=== PATIENT | female | born 1960 | race African-American/Black ===

== ENCOUNTER 2017-05-05 10:33 | Outpatient (CLI) | payer OTHER | END 2017-05-05 10:34 | disposition home or self-care (01) | LOC: CTENTCT 10:33 | PROVIDERS: ATTEND Otolaryngology Plastic Surgery within the Head & Neck | DX: J32.9 Chronic sinusitis, unspecified (principal) | CPT/HCPCS: 70486 ==

== ENCOUNTER 2017-06-22 08:25 | Outpatient (CLI) | payer OTHER ==
[2017-06-22] MEDS ORDERED: EPINEPHrine 1 MG/ML AMP ONE (09:00)
[2017-06-22] MEDS ORDERED: Iopamidol 300 61% 30 ML VIAL ONE (09:00)
[2017-06-22] MEDS ORDERED: Lidocaine 1% PF 10 ML AMP ONE (09:00)
[2017-06-22] MEDS ORDERED: Sodium Chloride 0.9% 50 ML BAG ONE (09:00)
--- NOTE | 2017-06-22 12:56 | CT ---
LEFT SHOULDER CT SCAN POST ARTHROGRAM CONTRAST: HISTORY: A 57-year-old female with a history of left shoulder pain. TECHNIQUE: CT exam was performed following a left shoulder arthrogram. FINDINGS: There is total left shoulder replacement. There is no evidence for a rotator cuff tear. Rotator cuf f muscles appear to be within normal limits in attenuation and volume. IMPRESSION: Postoperative total shoulder replacement on the left. No evidence for rotator cuff. Rotator cuff mu scles appear to be normal in attenuation and volume. POS: [facility]
[2017-06-22 14:22] LABS: BF Color Yellow; BF RBC Count - Manual 2325 /cumm; Body Fluid Source SYNOVIAL FLUID; Clarity Hazy (Clear); RBC Background Count 0.002; Tube # EDTA; WBC/NonHematic-Auto 414 /cumm
--- NOTE | 2017-06-22 14:43 | RAD ---
PROCEDURES: 1. Fluoroscopic guided left glenohumeral joint aspiration. 2. Fluoroscopic-guided left shoulder arthrogram. DATE: 06/22/17. HISTORY: The patient has left shoulder prosthesis but has continued pain in the left shoulder. Joint aspirati on as well as arthrogram are requested followed by CT exam left shoulder. TECHNIQUE: The procedure including the risks and complications was explained to the patient and informed consent was obtained. The patient was placed on the fluoroscopy table in the supine position. The left charli ulder was placed in external rotation. An area overlying the upper 1/3 of the margin of the humeral prosthesis was marked, and the area was then meticulously prepped and draped in the usual sterile fas hion. The skin and subcutaneous tissues were infiltrated with buffered 1% Lidocaine for local anesthesia. Utilizing fluoroscopic guidance, a 22-gauge needle was advanced to the level of the prosthesis and th en slightly directed medially into the left glenohumeral joint. The inner stylette was removed, and approximately 4 mL of clear straw-colored fluid was aspirated. The fluid was sent for laboratory zachariah ues. A left shoulder arthrogram was then preformed with injection of 12 mL of a mixture originally consist ing of Isovue 300, normal saline, a Lidocaine, and a small amount of epinephrine. The needle was rem sae. Hemostasis was achieved with direct pressure, and a dry sterile dressing was placed. The patient was transported to CT scan for additional imaging of the left shoulder post arthrogram. The patient tolerated the procedure well and without immediate complication. FINDINGS: Three views of the left shoulder were obtained prior to left shoulder arthrogram which demonstrates a left humeral prosthesis. No hardware complication is identified, and there is no dislocation. A left glenohumeral joint aspiration was performed, and approximately 4 mL of clear straw-colored flu id was aspirated. Specimens were sent for labs. A left shoulder arthrogram was successfully performed under fluoroscopic guidance. IMPRESSION: 1. Left humeral prosthesis. 2. Technically successful left glenohumeral joint aspiration. 3. Technically successful left shoulder arthrogram. POS: [facility]
[2017-06-22 14:45] LABS: BF Segmented Neutrophils 25 %; Cell Count Non Hematic 53 %; Lymphocytes 22 %
== END 2017-06-22 08:26 | disposition home or self-care (01) ==
LOC: RAD 08:25
PROVIDERS: ATTEND Orthopaedic Surgery
DX: M25.512 Pain in left shoulder (principal); Z96.612 Presence of left artificial shoulder joint; Z98.890 Other specified postprocedural states
CPT/HCPCS: 23350; 85060; 87070; 87205; 89051; J0171; J7050

== ENCOUNTER 2017-06-27 08:55 | Outpatient (CLI) | payer OTHER ==
--- NOTE | 2017-06-27 09:41 | RAD ---
CHEST 2 VIEWS: HISTORY: Dyspnea. COMPARISON: None. FINDINGS: Lungs are clear. No pneumothorax or effusion. Cardiac silhouette and mediastinal contour is within normal limits. IMPRESSION: No acute intrathoracic abnormality. POS: [facility]
== END 2017-06-27 08:56 | disposition home or self-care (01) ==
LOC: RAD 08:55
PROVIDERS: ATTEND Internal Medicine Critical Care Medicine
DX: R06.00 Dyspnea, unspecified (principal)
CPT/HCPCS: 71046

== ENCOUNTER 2018-02-21 06:15 | Day surgery (SDC) | payer OTHER ==
[2018-02-20 15:35] VITALS: BMI 33.4
--- NOTE | 2018-02-21 07:23 | HP ---
HISTORY OF PRESENT ILLNESS: This is a 57-year-old female, comes for an EGD because of the history of longstanding acid reflux. The patient has had acid reflux for more than 10 years ago. The patient is taking omeprazole for last 10 years. She has been having increasing reflux over the last several months. She also complains of regurgitation after eating. The patient comes for EGD because of long standing acid reflux along with negative endoscopy exam in the past. She also has dysphagia off and on and the dysphagia is mostly to solid foods. ALLERGIES Tylenol No.4. SOCIAL HISTORY: The patient is a smoker. She drinks alcohol occasionally. MEDICAL ILLNESSES: 1. Hypertension. 2. Hyperlipidemia. 3. Obesity. 4. Chronic acid reflux. 5. Back surgery. 6. Hysterectomy. 7. Left shoulder surgery x2. PHYSICAL EXAMINATION: VITAL SIGNS: Pulse is 70, blood pressure 130/80. HEENT: Conjunctivae clear. NECK: Supple. No adenitis or thyromegaly noted. CARDIOVASCULAR SYSTEM: First and second heart sounds heard. LUNGS: Clear to auscultation. ABDOMEN: Soft. No organomegaly. No tenderness. No masses. EXTREMITIES: No edema. ADMITTING DIAGNOSIS: Chronic acid reflux or dysphagia. PLAN: EGD and possible dilation. Job ID: [id number]
[2018-02-21] MEDS ORDERED: PROPOFOL 200 MG/20 ML VIAL ONE (21:15)
[2018-02-21] MEDS ORDERED: Lidocaine 1% PF 5 ML VIAL ONE (21:15)
--- NOTE | 2018-02-22 12:06 | OP ---
DATE OF PROCEDURE: 02/21/2018 PROCEDURES PERFORMED: 1. Esophagogastroduodenoscopy with biopsy. 2. Esophageal dilation with a 52-[place] Din[employer] dilator. PREOPERATIVE DIAGNOSES: The patient with longstanding acid reflux with worsening symptoms recently. She also complains of dysphagia to solids food. The patient . POSTOPERATIVE DIAGNOSES: 1. Normal esophageal mucosa, no esophagitis seen. 2. No esophageal stricture seen. 3. Mild focal gastritis to gastric body. Otherwise, normal exam. DESCRIPTION OF PROCEDURE: The patient was placed on her left lateral position and was given sedation by the Anesthesia Department. A [employer]ax video gastroscope under direct vision passed down the oropharynx past the GE junction into the stomach and subsequently into the descending duodenum. Although, the patient complains of worsening acid reflux, on endoscopy, the mucosa appears completely normal. No esophagitis seen. At the GE junction, no pathology seen. Retroflexion failed to show any pathology in the fundus or cardia. The gastric body shows focal edema, erythema. Biopsy obtained from the gastric antrum and gastric body. At the incisura angularis, no pathology seen. At the duodenal bulb, descending duodenum, no pathology seen. The stomach was decompressed and the scope was removed. Because of dysphagia, a 52-Portuguese Dinero dilator advanced the stomach . DISCHARGE PLANNING: Ms. Pulido is a very pleasant 57-year-old female referred to me for evaluation of acid reflux with dysphagia. Although, the patient complains of worsening acid reflux, on endoscopy, no esophagitis seen. Also, there is no esophagus stricture seen. The patient underwent empiric dilation with a 52-[place] Dinero dilator, which was passed out without any resistance. DISCHARGE RECOMMENDATIONS: 1. Weight loss. 2. Dietary and lifestyle modification for control of reflux. 3. Continue omeprazole. 4. Come back to clinic in 2 weeks. Job ID: [id number]
== END 2018-02-21 10:12 | disposition home or self-care (01) ==
LOC: SDC 06:15
PROVIDERS: ATTEND Internal Medicine Gastroenterology
PROC: 0DB68ZX Excision of Stomach, Via Natural or Artificial Opening Endoscopic, Diagnostic (ICD-10-PCS; principal; 2018-02-21)
PROC: 0D757ZZ Dilation of Esophagus, Via Natural or Artificial Opening (ICD-10-PCS; principal; 2018-02-21)
DX: K29.70 Gastritis, unspecified, without bleeding (principal); K21.9 Gastro-esophageal reflux disease without esophagitis; I10 Essential (primary) hypertension; E78.5 Hyperlipidemia, unspecified; F17.200 Nicotine dependence, unspecified, uncomplicated; E66.9 Obesity, unspecified; Z68.33 Body mass index [BMI] 33.0-33.9, adult; Z79.899 Other long term (current) drug therapy; Z88.5 Allergy status to narcotic agent; Z88.8 Allergy status to other drugs, medicaments and biological substances
CPT/HCPCS: 88305; 88312; J2001; J2704

== ENCOUNTER 2018-07-05 14:02 | Outpatient (CLI) | payer OTHER ==
--- NOTE | 2018-07-05 14:44 | RAD ---
EXAM: Cervical spine 3 views including flexion and extension views HISTORY: Pain COMPARISON: None FINDINGS: C7-T1 is partially obscured on the lateral view. Disc osteophytosis at C5-C6. No prevertebral soft tissue swelling. Minimal facet arthrosis. No abnormal translation between flexion and extension. No evidence for malalignment. No evidence for a bone lesion. IMPRESSION: Spondylosis. No significant acute process.
== END 2018-07-05 14:03 | disposition home or self-care (01) ==
LOC: RAD 14:02
PROVIDERS: ATTEND Nurse Practitioner Family
DX: M54.2 Cervicalgia (principal); M47.812 Spondylosis without myelopathy or radiculopathy, cervical region
CPT/HCPCS: 72040

== ENCOUNTER 2020-05-29 14:45 | Outpatient (CLI) | payer BC | END 2020-05-29 14:46 | disposition home or self-care (01) | LOC: BICMAMMO 14:45 | PROVIDERS: ATTEND Family Medicine | DX: Z12.31 Encounter for screening mammogram for malignant neoplasm of breast (principal); Z13.820 Encounter for screening for osteoporosis; Z78.0 Asymptomatic menopausal state; M85.851 Other specified disorders of bone density and structure, right thigh | CPT/HCPCS: 77063; 77067; 77080 ==

== ENCOUNTER 2021-12-24 11:12 | Emergency (ER) | payer OTHER ==
[2021-12-24 12:04] LABS: #Eosinphils 0.1 thou/uL (0.0-0.7); #Lymphocytes 1.2 thou/uL (1.20-3.40); #Monocytes 0.5 thou/uL (0.11-0.59); #Neutrophils 6.5 thou/uL (1.40-6.50); %Basophils 0.4 % (0.0-1.0); %Eosinophils 0.9 % (0.0-10.0); %Lymphocytes 14.5 % (21.0-51.0); %Monocytes 5.8 % (0.0-10.0); %Neutrophils 78.5 % (42.0-75.0); Hemoglobin 12.4 g/dL (12.0-16.0); Mean Corpuscular HGB CONC 32.3 g/dL (32.0-36.0); Mean Corpuscular Hemoglobin 32.2 pg (27.0-31.0); Mean Corpuscular Volume 99.8 fL (78.0-98.0); Mean Platelet Volume 7.7 fL (7.4-10.4); Platelet Count 327 thou/uL (130-400); RBC Distribution Width 11.4 % (11.5-14.5); Red Blood Cell (RBC) Count 3.86 mill/uL (4.20-5.40); White Blood Cell (WBC) Count 8.3 thou/uL (4.8-10.8)
[2021-12-24] MEDS ORDERED: Dicyclomine 20 MG/2 ML VIAL ONE (12:18)
[2021-12-24 12:36] LABS: ALT (SGPT) 12 U/L (8-55); AST (SGOT) 11 U/L (5-34); Albumin 4.5 g/dL (3.4-4.8); Alkaline Phosphatase 88 U/L (40-110); Anion Gap 15 mmol/L (10-20); BUN (Urea Nitrogen) 10 mg/dL (9.8-20.1); Bilirubin, Total 0.5 mg/dL (0.2-1.2); Calc. Creatinine Clearance 0 mL/min (70-130); Calcium 9.4 mg/dL (7.8-10.44); Carbon Dioxide 20 mmol/L (23-31); Chloride 105 mmol/L (98-107); Estimated GFR 58; Globulin 3.3 g/dL (2.4-3.5); Glucose 136 mg/dL (80-115); Lipase 19 U/L (8-78); Potassium 4.3 mmol/L (3.5-5.1); Protein, Total 7.8 g/dL (5.8-8.1); Sodium 136 mmol/L (136-145)
[2021-12-24 13:59] LABS: Bilirubin Negative (Negative); Blood, Urine Negative (Negative); Clarity Clear (Clear); Glucose, Urine (Dipstick) Normal (Negative); Ketone, Urine Negative (Negative); Leukocyte Negative Leu/uL (Negative); Nitrite Negative (Negative); Protein, Urine (Dipstick) Negative (Neg-Trace); Specific Gravity, Urine 1.017 (1.002-1.036); Urobilinogen Normal mg/dL (Less than 2); pH, Urine 7.5 (5.0-9.0)
[2021-12-24] MEDS ORDERED: Ketorolac Tromethamine 30 MG/ML VIAL ONE (15:02)
[2021-12-24] MEDS ORDERED: Ondansetron PF 4 MG/2 ML Vial ONE ×2 (15:02→17:06)
== END 2021-12-24 17:17 | disposition home or self-care (01) ==
LOC: ERS 11:12
DX: K52.9 Noninfective gastroenteritis and colitis, unspecified (principal); I10 Essential (primary) hypertension; E78.5 Hyperlipidemia, unspecified; E11.9 Type 2 diabetes mellitus without complications; K21.9 Gastro-esophageal reflux disease without esophagitis; F17.290 Nicotine dependence, other tobacco product, uncomplicated
CPT/HCPCS: 36415; 74177; 80053; 81003; 83690; 85025; 96372; 96374; 96375; 96376; J1885; J2405

== ENCOUNTER 2023-12-26 15:22 | Inpatient (IN) | payer OTHER ==
[2023-12-26 16:04] LABS: #Basophils 0.04 10x3/uL (0.0-0.2); %Basophils 0.7 % (0.0-1.0); %Eosinophils 3.4 % (0.0-10.0); %Lymphocytes 27.5 % (21.0-51.0); %Monocytes 9.4 % (0.0-10.0); %Neutrophils 58.1 % (42.0-75.0); Hematocrit 37.5 % (36.0-47.0); Mean Corpuscular Hemoglobin 31.5 pg (27.0-31.0); Mean Corpuscular Volume 98.4 fL (78.0-98.0); Mean Platelet Volume 9.6 fL (7.4-10.4); Platelet Count 294 10x3/uL (130-400); RBC Distribution Width 11.7 % (11.5-14.5); Red Blood Cell (RBC) Count 3.81 mill/uL (4.20-5.40)
[2023-12-26] MEDS ORDERED: Nitroglycerin 0.4 MG TAB 1 EACH ONE (16:16)
[2023-12-26 16:29] LABS: ALT (SGPT) 13 U/L (8-55); AST (SGOT) 11 U/L (5-34); Albumin 3.1 g/dL (3.4-4.8); Alkaline Phosphatase 64 U/L (40-110); Anion Gap 14 mmol/L (10-20); BUN (Urea Nitrogen) 9 mg/dL (9.8-20.1); Bilirubin, Total 0.4 mg/dL (0.2-1.2); Calc. Creatinine Clearance 0 mL/min (70-130); Calcium 8.6 mg/dL (7.8-10.44); Carbon Dioxide 21 mmol/L (23-31); Chloride 108 mmol/L (98-107); Estimated GFR 78; Globulin 2.4 g/dL (2.4-3.5); Glucose 140 mg/dL (80-115); Potassium 3.7 mmol/L (3.5-5.1); Protein, Total 5.5 g/dL (5.8-8.1); Sodium 139 mmol/L (136-145)
[2023-12-26 16:30] LABS: Troponin I Less than 0.010 ng/mL (< 0.028)
[2023-12-26] MEDS ORDERED: Ondansetron PF 4 MG/2 ML Vial IVP PRN (17:23)
[2023-12-26] MEDS ORDERED: HumaLOG 300 UNITS/3 ML VIAL SC PRN (17:40)
[2023-12-26] MEDS ORDERED: Dextrose 50% Abboject 50 ML SYRINGE SLOW IVP PRN (17:40)
[2023-12-26] MEDS ORDERED: Glucagon 1 MG/ML KIT IM PRN (17:40)
[2023-12-26] MEDS ORDERED: Dextrose 5% in Water 1,000 ML IV PRN (17:40)
[2023-12-26 19:21] LABS: Troponin I Less than 0.010 ng/mL (< 0.028)
[2023-12-26] MEDS: Atorvastatin Calcium 40 MG TAB PO SCH (22:31)
[2023-12-26] MEDS: Nitroglycerin 0.4 MG TAB (25 Tab Bottle) SL PRN (22:31)
[2023-12-26] MEDS: Aspirin 325 MG TAB PO SCH (22:33)
[2023-12-26 22:52] VITALS: BMI 40.9
[2023-12-26 23:13] LABS: Troponin I Less than 0.010 ng/mL (< 0.028)
[2023-12-27] MEDS: Morphine 4 MG/ML VIAL SLOW IVP SCH (02:28)
[2023-12-27 04:45] LABS: #Basophils 0.05 10x3/uL (0.0-0.2); %Basophils 0.9 % (0.0-1.0); %Eosinophils 3.5 % (0.0-10.0); %Lymphocytes 37.3 % (21.0-51.0); %Monocytes 12.8 % (0.0-10.0); %Neutrophils 44.5 % (42.0-75.0); Hematocrit 35.1 % (36.0-47.0); Hemoglobin 11.2 g/dL (12.0-16.0); Mean Corpuscular HGB CONC 31.9 g/dL (32.0-36.0); Mean Corpuscular Hemoglobin 31.1 pg (27.0-31.0); Mean Corpuscular Volume 97.5 fL (78.0-98.0); Platelet Count 298 10x3/uL (130-400); RBC Distribution Width 11.6 % (11.5-14.5)
[2023-12-27 05:20] LABS: Anion Gap 13 mmol/L (10-20); BUN (Urea Nitrogen) 12 mg/dL (9.8-20.1); Calc. Creatinine Clearance 101 mL/min (70-130); Calcium 8.5 mg/dL (7.8-10.44); Carbon Dioxide 22 mmol/L (23-31); Chloride 111 mmol/L (98-107); Estimated GFR 61; Glucose 123 mg/dL (80-115); Potassium 3.9 mmol/L (3.5-5.1); Sodium 142 mmol/L (136-145)
[2023-12-27] MEDS: Furosemide 40 MG (4 mL) VIAL SLOW IVP SCH (08:32)
[2023-12-27] MEDS: Enoxaparin 40 MG (0.4 mL) SYRINGE SC SCH (08:32)
[2023-12-27] MEDS: Aspirin Chewable 81 MG TAB PO SCH (08:33)
[2023-12-27] MEDS: Carvedilol 6.25 MG TAB PO SCH (08:33)
[2023-12-27] MEDS: Pantoprazole DR 40 MG TAB PO SCH (08:33)
[2023-12-27] MEDS ORDERED: Iopamidol-370 76% 500 ML MDV (1 ML CHARGE) ONE (09:52)
[2023-12-27] MEDS ORDERED: Regadenoson 0.4 MG/5 ML SYRINGE ONE (11:40)
[2023-12-27] MEDS: Ketorolac Tromethamine 30 MG (1 mL) VIAL IVP PRN (16:19)
[2023-12-27] MEDS: QUEtiapine 200 MG TAB PO SCH (20:25)
[2023-12-27] MEDS: hydrOXYzine Pamoate 25 mg Capsule PO SCH (20:26)
[2023-12-28 04:34] LABS: #Basophils 0.04 10x3/uL (0.0-0.2); %Basophils 0.7 % (0.0-1.0); %Eosinophils 3.3 % (0.0-10.0); %Lymphocytes 36.5 % (21.0-51.0); %Monocytes 14.5 % (0.0-10.0); %Neutrophils 44.1 % (42.0-75.0); Hematocrit 35.2 % (36.0-47.0); Hemoglobin 11.7 g/dL (12.0-16.0); Mean Corpuscular HGB CONC 33.2 g/dL (32.0-36.0); Mean Corpuscular Hemoglobin 31.5 pg (27.0-31.0); Mean Corpuscular Volume 94.6 fL (78.0-98.0); Platelet Count 281 10x3/uL (130-400); RBC Distribution Width 11.7 % (11.5-14.5); Red Blood Cell (RBC) Count 3.72 mill/uL (4.20-5.40)
[2023-12-28 05:31] LABS: Anion Gap 14 mmol/L (10-20); BUN (Urea Nitrogen) 15 mg/dL (9.8-20.1); Calc. Creatinine Clearance 97 mL/min (70-130); Calcium 8.7 mg/dL (7.8-10.44); Carbon Dioxide 25 mmol/L (23-31); Chloride 105 mmol/L (98-107); Estimated GFR 59; Glucose 136 mg/dL (80-115); Potassium 3.7 mmol/L (3.5-5.1); Sodium 140 mmol/L (136-145)
[2023-12-28] MEDS ORDERED: Non-Formulary Item 1 EACH (Omeprazole [Omeprazole] 40 MG Capsule.Dr) PO SCH (09:00)
[2023-12-28] MEDS: DULoxetine 60 MG CAP PO SCH (09:59)
[2023-12-28] MEDS: Spironolactone 25 MG TAB PO SCH (10:00)
[2023-12-29 07:04] LABS: #Basophils 0.04 10x3/uL (0.0-0.2); %Basophils 0.8 % (0.0-1.0); %Eosinophils 4.6 % (0.0-10.0); %Lymphocytes 32.6 % (21.0-51.0); %Monocytes 13.1 % (0.0-10.0); %Neutrophils 47.5 % (42.0-75.0); Hematocrit 34.7 % (36.0-47.0); Hemoglobin 11.5 g/dL (12.0-16.0); Mean Corpuscular HGB CONC 33.1 g/dL (32.0-36.0); Mean Corpuscular Hemoglobin 31.5 pg (27.0-31.0); Mean Corpuscular Volume 95.1 fL (78.0-98.0); Mean Platelet Volume 9.8 fL (7.4-10.4); Platelet Count 274 10x3/uL (130-400); RBC Distribution Width 11.5 % (11.5-14.5); Red Blood Cell (RBC) Count 3.65 mill/uL (4.20-5.40)
[2023-12-29 07:23] LABS: Anion Gap 12 mmol/L (10-20); BUN (Urea Nitrogen) 17 mg/dL (9.8-20.1); Calc. Creatinine Clearance 102 mL/min (70-130); Calcium 8.7 mg/dL (7.8-10.44); Carbon Dioxide 25 mmol/L (23-31); Chloride 106 mmol/L (98-107); Estimated GFR 61; Glucose 129 mg/dL (80-115); Potassium 3.9 mmol/L (3.5-5.1); Sodium 139 mmol/L (136-145)
[2023-12-29 11:13] VITALS: BP 118/58; TEMP 98.1
== END 2023-12-29 14:04 | disposition home or self-care (01) | DRG 205 ==
LOC: ERS 15:22 → OBS 16:52 → OBSVTOIN 12-28 14:50
PROVIDERS: ADMIT Internal Medicine; ATTEND Hospitalist
DX: M94.0 Chondrocostal junction syndrome [Tietze] (principal); I50.33 Acute on chronic diastolic (congestive) heart failure; Z68.41 Body mass index [BMI] 40.0-44.9, adult; I11.0 Hypertensive heart disease with heart failure; I25.10 Atherosclerotic heart disease of native coronary artery without angina pectoris; E78.5 Hyperlipidemia, unspecified; E11.9 Type 2 diabetes mellitus without complications; K21.9 Gastro-esophageal reflux disease without esophagitis; F32.A Depression, unspecified; F43.10 Post-traumatic stress disorder, unspecified; F17.210 Nicotine dependence, cigarettes, uncomplicated; E66.01 Morbid (severe) obesity due to excess calories; R07.89 Other chest pain; Z88.5 Allergy status to narcotic agent; Z90.710 Acquired absence of both cervix and uterus; Z88.2 Allergy status to sulfonamides
CPT/HCPCS: 36415; 36416; 71045; 71275; 78452; 80048; 80053; 83880; 84484; 85025; 85379; 93005; 93017; 93306; 94760; A9500; J1650; J1885; J1940; J2272; J2785; Q0177; Q9967